=== PATIENT | male | born 1995 | race Caucasian/White ===

== ENCOUNTER 2023-12-29 12:03 | Outpatient (CLI) | payer BC, SELFPAY | END 2023-12-29 12:04 | disposition home or self-care (01) | PROVIDERS: PCP Family Medicine; Visit Provider Family Medicine | DX: I10 Essential (primary) hypertension (principal); F41.9 Anxiety disorder, unspecified; Z13.6 Encounter for screening for cardiovascular disorders; F32.A Depression, unspecified | CPT/HCPCS: 80053; 80061; 82043; 82570 ==

== ENCOUNTER 2024-01-18 09:10 | Outpatient (CLI) | payer BC, SELFPAY ==
--- NOTE | 2024-01-18 09:15 | CRLHL7_ITS ---
For Patients: As a result of the Century Cures Act, medical imaging exams and procedure reports are released immediately into your electronic medical record. You may view this report before your referring provider. If you have questions, please contact your health care provider. INDICATION: Hypertension TECHNIQUE: Grayscale, color Doppler and power Doppler evaluation of the kidneys and renal arteries performed. COMPARISON: None available FINDINGS: BILATERAL RENAL ARTERY DUPLEX ULTRASOUND ABDOMINAL AORTA: Peak systolic velocity = 89 cm/s. No aortic aneurysm. RIGHT KIDNEY: 11.1 cm in length. There is no hydronephrosis. Peak systolic velocity = 140 cm/second. Partially duplicated right renal artery incidentally noted. Renal artery to aortic peak systolic velocity ratio = 1.6 Resistive indices: 0.57 Renal vein = patent LEFT KIDNEY: 11.1 cm in length. There is no hydronephrosis. Peak systolic velocity = 124 cm/second Renal artery to aortic peak systolic velocity ratio = 1.4 Resistive indices: 0.56 Renal vein = patent IMPRESSION: No evidence of significant renal artery stenosis. Dictated by Martin Avelar MD @ 01/19/2024 6:26:28 AM (Electronically Signed)
--- NOTE | 2024-04-09 15:00 | PC.SOCIAL ---
Social work consult: general ii farmworker emailed the pt at with information on how to apply for [facility] through [facility], as the pt currently lives in [place], [place]. Social work to follow-up as needed.
== END 2024-01-18 09:11 | disposition home or self-care (01) ==
LOC: US 09:12
PROVIDERS: PCP Family Medicine; Visit Provider Family Medicine
DX: I10 Essential (primary) hypertension (principal); F32.A Depression, unspecified; F41.9 Anxiety disorder, unspecified
CPT/HCPCS: 76775; 93975

== ENCOUNTER 2024-10-24 09:33 | Outpatient (CLI) | payer BC, SELFPAY ==
--- NOTE | 2024-11-05 12:07 | W.PM.SLEEP ---
Sleep Study Details Details Interpreting Provider: Ewa Date of Sleep Study: 10/24/24 Sleep Study Details: STUDY TYPE:? [Home unattended ? BMI:? 36.56 ORDERING PROVIDER:? Ewa INDICATION:? Concern about sleep apnea ? SLEEP SUMMARY:? 517 minutes monitored RESPIRATORY SUMMARY:? AHI 11.2 Low oxygen 89 Snoring 25.2% PERIODIC LIMB MOVEMENTS OF SLEEP:? Not recorded CARDIAC:? Range 60-127, mean 80.2 IMPRESSION:? Mild obstructive sleep apnea, tachycardia noted during sleep with a heart high rate of 127 RECOMMENDATION: For the obstructive sleep apnea treatment options include dental appliance CPAP weight loss and/or airway expansion surgery We will notify his primary physician regarding the tachycardia. Further evaluation may be indicated.
== END 2024-10-24 09:34 | disposition home or self-care (01) ==
LOC: SLEEP 09:34
PROVIDERS: PCP Family Medicine; Visit Provider Otolaryngology
DX: G47.33 Obstructive sleep apnea (adult) (pediatric) (principal)
CPT/HCPCS: 95806

== ENCOUNTER 2024-12-13 10:15 | Outpatient (CLI) | payer BC, SELFPAY | END 2024-12-13 10:16 | disposition home or self-care (01) | PROVIDERS: PCP Family Medicine; Visit Provider Family Medicine | DX: Z00.00 Encounter for general adult medical examination without abnormal findings (principal); I10 Essential (primary) hypertension; R53.83 Other fatigue; F32.A Depression, unspecified; F41.9 Anxiety disorder, unspecified; F90.9 Attention-deficit hyperactivity disorder, unspecified type; Z13.1 Encounter for screening for diabetes mellitus; Z13.6 Encounter for screening for cardiovascular disorders | CPT/HCPCS: 80053; 80061; 82043; 82306; 82570; 84443 ==

== ENCOUNTER 2025-02-11 07:11 | Outpatient (CLI) | payer BC, SELFPAY ==
[2025-02-11 15:42] LABS: Chlamydia DNA Amplified* NOT DETECTED (No Detected); GC DNA Amplified* NOT DETECTED (No Detected)
== END 2025-02-11 07:12 | disposition home or self-care (01) ==
PROVIDERS: PCP Family Medicine; Visit Provider Family Medicine
DX: Z11.3 Encounter for screening for infections with a predominantly sexual mode of transmission (principal); Z11.4 Encounter for screening for human immunodeficiency virus [HIV]; Z11.59 Encounter for screening for other viral diseases
CPT/HCPCS: 86592; 86703; 86706; 86803; 87340; 87491; 87591

== ENCOUNTER 2025-05-22 10:38 | Outpatient (CLI) | payer BC, SELFPAY | END 2025-05-22 10:39 | disposition home or self-care (01) | LOC: FRMREF 10:49 | PROVIDERS: PCP Family Medicine; Visit Provider Family Medicine | DX: Z77.011 Contact with and (suspected) exposure to lead (principal) | CPT/HCPCS: 83655 ==